=== PATIENT | male | born 1960 | race African-American/Black ===

== ENCOUNTER 2023-05-15 10:30 | Emergency (ER) | payer MEDICARE, MEDICAID, SELFPAY ==
[2023-05-15 11:05] VITALS: BP 180/88; PULSE 84; RESP 18; TEMP 36.6; O2SAT 98; BMI 40.8
--- NOTE | 2023-05-15 11:22 | ED.GENADUL1 ---
HPI - General Adult General Chief complaint: Extremity Injury, Lower Stated complaint: LEFT FOOT AND LEG PAIN Time Seen by Provider: 05/15/23 11:22 Source: patient and family Mode of arrival: Wheelchair Limitations: no limitations History of Present Illness HPI narrative: This document has been composed with a new electronic medical record and dragging voice recognition system. This document may not fully inaccurately reflect the entirety of the patient encounter.This patient's here with his mother for complaint of swelling of his left lower leg and great toe. He has a number severe medical problems including prostate cancer that is being treated at the [facility]. He also gets his dialysis at the [facility]. He was just there this week and his mother wanted him to go to the emergency room because she saw the leg swelling and drainage from the toe but he refused and came home. He does have previous wound in that right great toe that was treated here as an outpatient previously j. she's noticed warmth to the lower leg. He's not had rigors or shaking chills. He is not on any antibiotics. He is getting prostate radiation seeds. The indicate that his prostate cancer is not spread to his other organs. He has not taken his insulin yet today. He has not eaten yet today. Mother is frustrated that he refused to go to the emergency room while in [place] yesterday. Related Data Allergies Allergy/AdvReac Type Severity Reaction Status Date / Time No Known Drug Allergies Allergy Verified 05/15/23 11:16 Exam Narrative Exam Narrative: very pleasant gentleman as is his mother. Vital signs are stable is afebrile no hypotension or tachycardia. Limited examination shows his right great toe to have a diabetic foot ulcer with foul purulent drainage from the open wound. The distal half of his leg is erythematous warm swollen with lymphangitis. Constitutional Vital Signs, click to edit/add: Last Vital Signs Temp 97.9 F 05/15/23 11:05 Pulse 84 05/15/23 11:05 Resp 18 05/15/23 11:05 BP 180/88 H 05/15/23 11:05 Pulse Ox 98 05/15/23 11:05 O2 Del Method Room Air 05/15/23 11:05 Course Vital Signs Vital signs: Vital Signs Temperature 97.9 F 05/15/23 11:05 Pulse Rate 84 05/15/23 11:05 Respiratory Rate 18 05/15/23 11:05 Blood Pressure 180/88 H 05/15/23 11:05 Pulse Oximetry 98 05/15/23 11:05 Oxygen Delivery Method Room Air 05/15/23 11:05 Temperature 97.9 F 05/15/23 11:05 Pulse Rate 84 05/15/23 11:05 Respiratory Rate 18 05/15/23 11:05 Blood Pressure 180/88 H 05/15/23 11:05 Pulse Oximetry 98 05/15/23 11:05 Oxygen Delivery Method Room Air 05/15/23 11:05 Medical Decision Making MDM Narrative Medical decision making narrative: this patient was number medical problems including chronic renal failure diabetes prostate cancer is getting care at a tertiary center in clearly needs to be admitted to that facility. He shows no signs of instability area and I do not believe this hospital can offer him any further treatment or care at this time because he will need dialysis in antibiotic therapy. The mother agrees to take him to the [facility] emergency room at this time with no further delay. This is not a transfer. Please defer any physician costs in this visit should be deferred Discharge Plan Discharge Chief Complaint: Extremity Injury, Lower Clinical Impression: Diabetic foot ulcer Patient Disposition: [facility] Time of Disposition Decision: 11:26 Stand Alone Forms: Portal Instructions Referrals: Physician,Non-Staff, MD [Primary Care Provider] - 1 week
== END 2023-05-15 11:36 | disposition home or self-care (01) ==
PROVIDERS: Emergency Provider Emergency Medicine Emergency Medical Services
DX: E11.621 Type 2 diabetes mellitus with foot ulcer (principal); L97.514 Non-pressure chronic ulcer of other part of right foot with necrosis of bone; C61 Malignant neoplasm of prostate; Z99.2 Dependence on renal dialysis
CPT/HCPCS: 99281